=== PATIENT | female | born 1955 | race Caucasian/White ===

== ENCOUNTER 2022-06-19 05:37 | Outpatient (CLI) | payer BC ==
[~2022-06-19] VITALS: Ht 172.7 cm; Wt 69.5 kg
[2022-06-19] MEDS ORDERED: FLUT1DIS28 IH (09:39)
[2022-06-19] MEDS ORDERED: HYDR25TA4 PO (09:39)
[2022-06-19] MEDS ORDERED: ESTR10TA VG (09:39)
[2022-06-19] MEDS ORDERED: RT-ALBUINH IH (09:39)
[2022-06-19] MEDS ORDERED: SPIR25TA5 PO (09:39)
[2022-06-19] MEDS ORDERED: ESTR42.511 VG (09:39)
[2022-06-19] MEDS ORDERED: AMLO-250 PO (09:39)
[2022-06-19] MEDS ORDERED: ATOR10TA66 PO (09:39)
[2022-06-19] MEDS ORDERED: NF-PREM2.5 PO (09:39)
[2022-06-19] MEDS ORDERED: MONT-40 PO (09:39)
[2022-06-19] MEDS ORDERED: PRED10TA22 PO (09:39)
== END 2022-06-19 09:48 | disposition home or self-care (01) ==
LOC: PREOP 05:37
PROVIDERS: ATTEND Surgery
DX: Z01.818 Encounter for other preprocedural examination (principal)

== ENCOUNTER 2022-07-01 07:00 | Day surgery (SDC) | payer BC ==
[~2022-07-01] VITALS: Ht 172.7 cm; Wt 69.5 kg
[~2022-07-01 07:00] MED LIST: AMLO-250 PO; ATOR10TA66 PO; ESTR10TA VG; ESTR42.511 VG; FLUT1DIS28 IH; HYDR25TA4 PO; MONT-40 PO; NF-PREM2.5 PO; PRED10TA22 PO; RT-ALBUINH IH; SPIR25TA5 PO
[2022-07-01 07:15] VITALS: BP 138/80
[2022-07-01] MEDS ORDERED: PROPOFOL INJECTION 50 ML IV ONE (07:26)
[2022-07-01] MEDS ORDERED: MIDAZOLAM 2 MG/2 ML (VERSED) VIAL ONE (07:26)
[2022-07-01] MEDS ORDERED: LACTATED RINGERS 1,000 ML IV ONE (07:45)
[2022-07-01 08:59] VITALS: BP 114/67
--- NOTE | 2022-07-01 09:00 | Progress Note-Post Operative ---
Post-Operative Progess Note Surgeon (s)/Sheet Metal Duct Installer Apprentice (s) Surgeon KRISTIN SCHRADER DO Sheet Metal Duct Installer Apprentice: JEREMIAS Serrano Pre-Operative Diagnosis screening Post-Operative Diagnosis Ulcer polyp int hemorrhoids Procedure & Operative Findings Date of Procedure 07/01/22 Procedure Performed/Findings Colonoscopy with cold bx PROCEDURE NOTE: After informed consent was obtained, the patient was brought to the endoscopy suite, placed in bed in left lateral decubitus position. She was administered IV sedation by the FINAL INSPECTOR PAPER who then monitored her vitals the entire time, heart rate, blood pressure and pulse ox and the scope was inserted, pushed all the way to about 160 cm and pushed into the cecum, took a picture of appendiceal orifice. In the cecum saw an ulcer; took a picture and then did a cold biopsy. Next, slowly withdrew the scope insufflating to look circumferentially at the dye starting in the cecum, up the ascending colon to the hepatic flexure, then down the transverse colon, splenic flexure, into the descending colon down into the sigmoid and then into the rectal vault. Found a small polyp in the rectum and removed it with a cold biopsy. Finally retroflexed the scope and took a picture of the internal hemorrhoids. The patient tolerated the procedure. She was recovered in endoscopy suite. Recommended for repeat colonoscopy in 5 years. Anesthesia Type IV sedation by FINAL INSPECTOR PAPER Estimated Blood Loss Estimated blood loss (mL): scant Specimens/Packing Specimens Removed cecal bx rectal polyp KRISTIN SCHRADER DO Jul 01, 2022 09:00
--- NOTE | 2022-07-01 09:01 | Endoscopy Discharge Instruct ---
Endo Procedure/Findings Findings 1.: Polyp 2.: Internal Hemorrhoids 3.: Other Findings (ulcer/inflammation) Discharge Instructions - Activity: You might feel a little sleepy until tomorrow. This is due to the medicine you received to relax you. Until tomorrow, you should: NOT drive a car, operate machinery or power tools. NOT drink any alcoholic beverages. NOT make any important decisions or sign importortant papers. Do not return to work until tomorrow, unless otherwise instructed. Resume previous activities tomorrow. Diet: Start by taking liquids. If you tolerate liquids, advance to solid food. 1.: Colonscopy in 5 years Notify Physician - If you experience excessive bleeding, unusual abdominal pain, fever, or chest pain, contact your doctor immediately. KRISTIN SCHRADER DO Jul 01, 2022 09:01
[2022-07-01 09:04] VITALS: BP 111/68
[2022-07-01 09:05] VITALS: BP 111/68
[2022-07-01 09:28] VITALS: BP 111/68
--- NOTE | 2022-07-01 13:25 | Anesthesia-General Post-Op ---
MAC Patient Condition Mental Status/LOC: Same as Preop Cardiovascular: Satisfactory Nausea/Vomiting: Absent Respiratory: Satisfactory Pain: Controlled Complications: Absent Post Op Complications Complications None Follow Up Care/Instructions Patient Instructions None needed. Anesthesiology Discharge Order Discharge Order Patient is doing well, no complaints, stable vital signs, no apparent adverse anesthesia problems. No complications reported per nursing. CHELSEA HIGGINBOTHAM CRNA Jul 01, 2022 13:25
== END 2022-07-01 09:30 | disposition home or self-care (01) ==
LOC: ENDO 07:00
PROVIDERS: ATTEND Surgery
DX: Z12.11 Encounter for screening for malignant neoplasm of colon (principal); K63.3 Ulcer of intestine; K62.1 Rectal polyp; K52.9 Noninfective gastroenteritis and colitis, unspecified; K64.8 Other hemorrhoids; Z79.52 Long term (current) use of systemic steroids
CPT/HCPCS: 88305

== ENCOUNTER 2023-07-21 15:32 | Outpatient (CLI) | payer BC ==
[~2023-07-21 15:32] MED LIST changes: +ALBU8.5H6 IH; -RT-ALBUINH IH
== END 2023-07-21 15:55 ==
LOC: SLEEP 15:32
PROVIDERS: ATTEND Nurse Practitioner
DX: G47.33 Obstructive sleep apnea (adult) (pediatric) (principal); I10 Essential (primary) hypertension
CPT/HCPCS: G0399